=== PATIENT | female | born 1975 | race Caucasian/White ===

== ENCOUNTER → 2022-01-05 16:24 | Outpatient (CLI) | payer OTHER, SELFPAY ==
--- NOTE | ~2022-01-05 | XR_ITS ---
EXAMINATION: XR abdomen/kub 1V DATE: 01/05/2022 16:45 INDICATION: Left flank pain for 6 months. TECHNIQUE: A supine view of the abdomen on 2 radiographs was obtained. COMPARISON: None. FINDINGS: There are no dilated loops of bowel. There is a small volume of stool in the colon. A calci fication in left pelvis is likely a phlebolith. There are inserts in the area of the fallopian tubes. IMPRESSION: 1. Normal bowel gas pattern. Reviewed, dictated and finalized at location A.
== END ==
PROVIDERS: PCP Nurse Practitioner Family; Visit Provider Nurse Practitioner Family
DX: R10.9 Unspecified abdominal pain (principal)
CPT/HCPCS: 74018

== ENCOUNTER → 2022-03-10 15:17 | Outpatient (CLI) | payer OTHER, SELFPAY ==
--- NOTE | ~2022-03-10 | CT_ITS ---
EXAMINATION: CT abdomen pelvis wo con DATE: 03/10/2022 15:35 INDICATION: Abdominal pain TECHNIQUE: Computed tomography (CT) of the abdomen and pelvis was performed without intravenous contr ast. The dose-length product (DLP) was 266.65 mGy-cm. Automated exposure control and iterative recons truction technique were employed. COMPARISON: None FINDINGS: The lung bases are clear. The heart size is normal. Bilateral breast implants are noted. Th e liver, spleen, pancreas, and adrenal glands are normal. The gallbladder is not definitely visualize d. The kidneys are unremarkable. Bilateral tubal occlusion devices are noted. No pathologically enlar ged abdominal or pelvic lymph nodes are identified. There is no free intraperitoneal gas or evidence of bowel obstruction. There is a moderate volume of ingested material in the stomach. The appendix is normal. IMPRESSION: 1. No CT correlate for the patient's symptoms. Reviewed, dictated and finalized at location F. Y FORGER
== END ==
PROVIDERS: PCP Nurse Practitioner Family; Visit Provider Nurse Practitioner Family
DX: R10.9 Unspecified abdominal pain (principal)
CPT/HCPCS: 74176

== ENCOUNTER → 2022-05-07 15:05 | Outpatient (CLI) | payer OTHER, SELFPAY ==
--- NOTE | ~2022-05-07 | XR_ITS ---
XR hip BI wo pelvis DATE: 05/07/2022 15:52 INDICATION: Bilateral hip pain TECHNIQUE: AP and lateral views of each COMPARISON: None FINDINGS: No fracture or dislocation, avascular necrosis or bone destruction of either hip. The pubic symphysis and sacral iliac joints are intact. Incidentally noted are bilateral radiopaque fallopian tube inserts. IMPRESSION: Negative bilateral hips Reviewed, dictated and finalized at location A. ESS ENG IMPRESSION: Negative bilateral hips
--- NOTE | ~2022-05-07 | XR_ITS ---
XR lumbar spine 2-3V DATE: 05/07/2022 15:51 INDICATION: Low back pain TECHNIQUE: AP, lateral and coned lateral lumbosacral views COMPARISON: None FINDINGS: There is mild thoracolumbar levoscoliosis. No fracture or bone destruction or spondylolisthesis of the lumbar spine. Lumbar and lumbosacral inte rspaces appear relatively well preserved. The included lower thoracic and lumbar pedicles are intact. The sacroiliac joints appear normal. Bilateral fallopian tube radiopaque inserts are noted. IMPRESSION: Mild thoracolumbar levoscoliosis Reviewed, dictated and finalized at location A. [employer] PROGRAMMER ANALYST
== END ==
PROVIDERS: PCP Physician Assistant; Visit Provider Physician Assistant
DX: M54.50 Low back pain, unspecified (principal)
CPT/HCPCS: 72100; 73521